=== PATIENT | male | born 1950 | race Caucasian/White ===

== ENCOUNTER → 2019-03-24 | Outpatient (CLI) | payer BC, SELFPAY ==
--- NOTE | 2019-03-24 16:09 | MRI_ITS ---
STUDY: MRI BRAIN WITH AND WITHOUT CONTRAST (ATTENTION INTERNAL AUDITORY CANALS - I.A.C.'s) REASON FOR EXAM: Male, 68 years old. Fang's palsy TECHNIQUE: Standardized multiplanar fat and water weighted pulse sequences were obtained. 24 IV Dotarem was administered for the contrast portion of the examination. COMPARISON: None. FINDINGS: There is enhancement of the proximal end of the right 9th cranial nerve. There is no abnormal enhancement of the 7th and 8th nerve complexes or the 5th cranial nerves on both sides. There are no abnormal signals identified in the brainstem.. Both external auditory canals are normal. There is a right-sided mastoiditis. Both cerebellopontine angles are clear. . MRI/Brain W/WO Contrast IMPRESSION: Abnormally enhancing proximal end of the right 9th cranial nerve. No abnormal enhancement of the 7th and 8th nerve complexes or the 5th cranial nerves on both sides Electronically Signed: Alexander Pascual MD at 7:49 EDT Tel , Service support ,
== END | disposition home or self-care (01) ==
PROVIDERS: Referring Provider Otolaryngology; Visit Provider Otolaryngology
DX: G51.0 Bell's palsy (principal)
CPT/HCPCS: 70553; A9575